=== PATIENT | male | born 1950 | race Caucasian/White ===

== ENCOUNTER 2017-01-27 15:06 | Emergency (ER) | payer MEDICARE ==
[~2017-01-27 15:06] MED LIST: ADULT ASPIRIN81 MG; AMARYL4 MG PO; ASPIRIN LOW STR81 MG PO; ASPIRIN81 M1 PO; CENTRUM SILVER1 EAC3 PO; CENTRUM SILVER1 TA PO; COREG3.125 MG PO; COREG6.25 M1 PO; COREG6.25 MG PO; EFFIENT10 MG/TAB PO; FLOMAX0.4 MG; GABAPENTIN300 M1 PO; GABAPENTIN300 MG; GABAPENTIN300 MG PO; GLIMEPIRIDE4 MG; GLUCOTROL10 MG PO; IBUPROFEN200 M1 PO; LANTUS SOLOSTAR3 ML SQ; LIPITOR20 M1 PO; LIPITOR20 MG PO; LISINOPRIL5 MG PO; METFORMIN HCL1000 M2 PO; METFORMIN HCL1000 MG PO; METFORMIN HCL500 MG; MULTIVITAMIN1 TAB; NABUMETONE500 MG; NITROGLYCERIN0.4 M2 SL; NITROQUICK0.4 MG SL; PRINIVIL10 M1 PO; RANEXA500 M1 PO; SIMVASTATIN40 MG PO; TOUJEO SOL300 UNIT/1 SC; TRULICITY1.5 MG/0.5 SQ; TYLENOL EXTRA500 M1 PO; TYLENOL PO; TYLENOL500 MG PO; ULTRAM50 M1 PO; ULTRAM50 MG PO; VICTOZA0.6 MG/0.1 SQ; VITAMIN B COMP1 EAC2 PO
[2017-01-27 17:08] LABS: ANION GAP 10 mmol/L (0-20); BLOOD UREA NITROGEN 14 mg/dl (6-24); CALCIUM 9.4 mg/dl (8.5-10.5); CARBON DIOXIDE-VENOUS 30 mmol/L (22-32); CHLORIDE 107 mmol/l (96-110); CREATININE 0.73 mg/dl (0.60-1.30); GLUCOSE 148 mg/dL (70-110); POTASSIUM 4.5 mmol/L (3.7-5.1); SODIUM 142 mmol/L (135-145); eGFR VALUE FOR BLACK >90 mL/Min
[2017-01-27 17:11] LABS: BASO % 0.7 % (0-2); BASO ABSOLUTE COUNT 0.1 tho/cmm (0.0-0.2); EOS % 4.5 % (0-7); EOSINOPHIL ABSOLUTE COUNT 0.4 tho/cmm (0.0-0.7); HCT-HEMATOCRIT 39.8 % (36.0-53.5); HGB-HEMOGLOBIN 13.4 gm/dl (13.5-17.0); IMMATURE GRANULOCYTES ABSOLUTE 0.02 tho/cmm (0-0.03); IMMATURE GRANULOCYTES PERCENT 0.2 % (0-0.3); LYMPH % 23.9 % (20-45); LYMPH ABSOLUTE COUNT 2.1 tho/cmm (0.8-4.5); MCHC MEAN CORPUSCULAR HGB CONC 33.7 % (32.0-36.0); MCV (MEAN CELL VOLUME) 89.2 fl (82.0-96.0); MEAN PLATELET VOLUME 8.7 cmc (9.4-12.4); MONO % 5.5 % (0-12); MONOCYTE ABSOLUTE COUNT 0.5 tho/cmm (0.0-1.2); NEUTROPHIL ABSOLUTE COUNT 5.7 tho/cmm (1.6-8.0); NEUTROPHIL-AUTOMATED 5.7 tho/cmm (1.6-8.0); NEUTROPHILS % 65.2 % (40-80); PLATELET COUNT 302 tho/cmm (150-450); RED BLOOD COUNT 4.46 mil/cmm (4.40-5.70); RED CELL DISTRIBUTION WIDTH 12.8 % (12.4-16.4); WHITE BLOOD COUNT 8.8 tho/cmm (4.0-10.0)
[2017-01-27 17:56] LABS: URINE BILIRUBIN NEGATIVE (NEG); URINE BLOOD NEGATIVE (NEG); URINE GLUCOSE (UA) NEGATIVE (NEG); URINE KETONE NEGATIVE (NEG); URINE LEUKOCYTE ESTERASE NEGATIVE (NEG); URINE NITRITE NEGATIVE (NEG); URINE PH 6.5 (5.0-8.0); URINE PROTEIN NEGATIVE (NEG)
[2017-01-27 18:05] LABS: URINE APPEARANCE CLEAR; URINE COLOR PALE YELLOW
== END 2017-01-27 18:53 ==
LOC: EDMED 15:06
PROVIDERS: Emergency Medicine
DX: R55 Syncope and collapse (principal); I25.10 Atherosclerotic heart disease of native coronary artery without angina pectoris; E11.9 Type 2 diabetes mellitus without complications; I10 Essential (primary) hypertension; E78.5 Hyperlipidemia, unspecified; Z79.4 Long term (current) use of insulin; Z79.899 Other long term (current) drug therapy; Z95.5 Presence of coronary angioplasty implant and graft
CPT/HCPCS: J7030